=== PATIENT | female | born 1965 | race Caucasian/White ===

== ENCOUNTER 2017-12-11 08:02 | Day surgery (SDC) | payer BC ==
[~2017-12-11] VITALS: Ht 162.6 cm; Wt 87.7 kg
[2017-12-11] MEDS ORDERED: LACTATED RINGERS 1,000 ML IV SCH (08:33)
[2017-12-11] MEDS ORDERED: NONE PER PT (08:33)
[2017-12-11 08:54] VITALS: BP 127/83
[2017-12-11] MEDS ORDERED: HEPARIN 1,000 UNITS/ML, 10ML ONE (09:44)
[2017-12-11] MEDS ORDERED: BUPIVACAINE/PF 0.5% ONE (09:44)
[2017-12-11] MEDS ORDERED: EPINEPHRINE 1 MG/ML, 1ML ONE (09:44)
[2017-12-11] MEDS ORDERED: MIDAZOLAM 1 MG/ML, 2ML ONE (09:52)
[2017-12-11] MEDS ORDERED: FENTANYL PF 100 MCG/2ML ONE ×2 (09:52→10:29)
[2017-12-11] MEDS ORDERED: PROPOFOL 10 MG/ML, 20ML ONE (09:53)
[2017-12-11] MEDS ORDERED: LIDOCAINE-MPF 2% ,5ML ONE (09:53)
[2017-12-11] MEDS ORDERED: CEFAZOLIN 1,000 MG ONE (09:58)
[2017-12-11] MEDS ORDERED: KETAMINE 10 MG/ML, 20ML ONE (09:58)
[2017-12-11] MEDS ORDERED: KETOROLAC 30 MG/1 ML ONE (10:28)
[2017-12-11] MEDS ORDERED: ONDANSETRON 2MG/ML, 2ML ONE (10:28)
[2017-12-11] MEDS ORDERED: DEXAMETHASONE 4 MG/ML, 1ML ONE (10:28)
[2017-12-11] MEDS ORDERED: PROMETHAZINE 12.5 MG SUPP PR PRN (11:00)
[2017-12-11] MEDS ORDERED: LORazepam 2 MG/ML, 1ML IVPush PRN (11:00)
[2017-12-11] MEDS ORDERED: LABETALOL 5MG/ML, 20ML IV PRN (11:00)
[2017-12-11] MEDS ORDERED: hydrALAzine 20 MG/ML, 1ML IV PRN (11:00)
[2017-12-11] MEDS ORDERED: METOCLOPRAMIDE 5 MG/ML, 2ML IV PRN (11:00)
[2017-12-11] MEDS ORDERED: OXYcodone 5 MG/5 ML ORAL.SOL UDC PO PRN (11:00)
[2017-12-11] MEDS ORDERED: ACETAMINOPHEN 325 MG TABLET PO PRN (11:00)
[2017-12-11] MEDS ORDERED: MEPERIDINE/PF 25MG/0.5ML IVPush PRN (11:00)
[2017-12-11] MEDS ORDERED: HYDROmorphone 1 MG/ML, 1ML IV PRN (11:00)
[2017-12-11] MEDS ORDERED: FENTANYL PF 100 MCG/2ML IV PRN (11:00)
== END 2017-12-11 12:45 ==
LOC: OUT 08:02
PROVIDERS: ATTEND Surgery
DX: Z45.2 Encounter for adjustment and management of vascular access device (principal); C50.912 Malignant neoplasm of unspecified site of left female breast; C50.911 Malignant neoplasm of unspecified site of right female breast; F17.210 Nicotine dependence, cigarettes, uncomplicated; Z72.89 Other problems related to lifestyle
CPT/HCPCS: 36561; 71045; 77001; 88305; C1788; J0171; J0690; J1100; J1644; J1885; J2250; J2405; J2704; J3010; J3490; J7120